=== PATIENT | female | born 1945 ===

== ENCOUNTER → 2017-12-28 | Outpatient (REF) | payer MEDICARE, BC | LOC: ZZSTITCHES 14:25 | PROVIDERS: ATTEND Physician Assistant | DX: Z02.9 Encounter for administrative examinations, unspecified (principal) ==

== ENCOUNTER → 2018-02-04 | Outpatient (CLI) | payer MEDICARE, BC ==
[~2018-02-04] MED LIST: CALC600T63 PO; CARB-127 PO; CHOL400T29 PO; ESCI5TAB3 PO; FLU180SY11 IM; MIDO5TAB20 PO; RASA1TAB3 PO; ROPI6TAB PO
[2018-02-04 12:08] LABS: PLATELET COUNT, AUTOMATED 296 K/uL (150-450)
--- NOTE | 2018-02-04 13:45 | RADIOLOGY IMAGING REPORT ---
FACILITY: [facility] PATIENT NAME: Leanna Cadena : 1945 MR: [id number] V: [id number] EXAM DATE: ORDERING PHYSICIAN: EDSON GALLEGO TECHNOLOGIST: Location: [facility] Patient: Leanna Cadena : 1945 Visit/Account:[id number] Date of Sevice: 02/04/2018 2 VIEWS CHEST INDICATION: dyspnea COMPARISON: None available FINDINGS: Cardiomediastinal silhouette: Heart size within normal limits. Lungs: There is no focal infiltrate or lobar consolidation. 1 cm radiodensity seen in the right uppe r lobe. Increased AP diameter of the chest. There is no pneumothorax or pleural effusion. Bones and soft tissues: Vertebral body heights are preserved. IMPRESSION: 1. 1 cm radiodensity in the right upper lobe with superimposed secondary findings of emphysema overa ll nonspecific, CT advised. Report Dictated By: Elmo Mckee MD at 02/04/2018 1:39 PM Report E-Signed By: Elmo Mckee MD at 02/04/2018 1:42 PM WSN:[id number]
--- NOTE | 2018-02-04 14:01 | RADIOLOGY IMAGING REPORT ---
FACILITY: [facility] [place] PATIENT NAME: Leanna Cadena : 1945 MR: [id number] V: [id number] EXAM DATE: ORDERING PHYSICIAN: EDSON GALLEGO TECHNOLOGIST: Location: [facility] [place] Patient: Leanna Cadena : 1945 Visit/Account:[id number] Date of Sevice: 02/04/2018 BONE MINERAL DENSITY Provided history: Osteopenia Additional pertinent history: none COMPARISON STUDIES: No relevant priors FINDINGS: LUMBAR SPINE: The bone mineral density (BMD) measured from [ L1-L4 ] correlates with a Z-score of 0.9 and a T-scor e of -1.0 which is consistent with mild osteopenia as defined by the World Health Organization. Th e corresponding risk of fracture in the lumbar spine is increased 2 times compared with a young kyle lt reference population. LEFT HIP: Total hip region - Z-score -0.5 , T-score -2.2 Femoral neck - Z-score -0.3 , T-score -2.2. The lower of the two measurements is consistent with advanced osteopenia as defined by the World Hea lth Organization. The corresponding risk of fracture in the hip is increased 4.5 times compared wit h a young adult reference population. IMPRESSION: 1. LUMBAR SPINE: consistent with mild osteopenia 2. LEFT HIP: consistent with advanced osteopenia LEFT Femoral Neck: Bone Mineral Density is 0.738 g/cm2 FRAX WHO Fracture Risk Assessment Tool link: http://www.lakia.ac.uk/FRAX/index.jsp The next DEXA scan of this patient should include the following sites: L1 - L4 and LEFT HIP PLEASE NOTE: 1. The World Health Organization defines low BMD as follows: T-score Normal > -1 Osteopenia -1 to -2.5 Osteoporosis < -2.5 without fractures Established osteoporosis < -2.5 with fractures 2. In general, you may wish to consider: Diagnosis Treatment Follow-up DEXA Normal BMD Prevention 2-3 years Osteopenia Prevention/therapy 1-2 years Osteoporosis Therapy Yearly 3. Fracture risk estimated from the T-score is more accurate for vertebral fractures (often spontaneo us) than for hip fractures. Report Dictated By: Vance Sylvester MD at 02/04/2018 1:56 PM Report E-Signed By: Vance Sylvester MD at 02/04/2018 1:57 PM WSN:[id number]
== END ==
LOC: LAB 11:43
PROVIDERS: ATTEND Emergency Medicine
DX: M85.89 Other specified disorders of bone density and structure, multiple sites (principal); E83.52 Hypercalcemia; D64.9 Anemia, unspecified; J43.9 Emphysema, unspecified; R06.00 Dyspnea, unspecified
CPT/HCPCS: 36415; 71046; 77080; 82040; 82247; 82306; 82310; 82374; 82435; 82565; 82607; 82728; 82947; 83540; 83550; 83970; 84075; 84132; 84155; 84295; 84450; 84460; 84520; 85025; 85379

== ENCOUNTER → 2018-02-11 | Outpatient (CLI) | payer MEDICARE, BC ==
--- NOTE | 2018-02-11 09:09 | RADIOLOGY IMAGING REPORT ---
FACILITY[place] [facility] [place] PATIENT NAME: Leanna Cadena : 1945 MR: [id number] V: [id number] EXAM DATE: ORDERING PHYSICIAN: EDSON GALLEGO TECHNOLOGIST: [place] [facility] [place] Cadena : 1945 Visit/Account:[id number] Date of Sevice: 02/11/2018 CHEST W/O CONTRAST History: pulmonary nodule TECHNIQUE: Contiguous axial images were performed through the chest to the level of the adrenal gla nds. No IV contrast was administered. Coronal and sagittal reformatting was also performed. One of t he following dose optimization techniques was utilized in the performance of this exam: Automated exp osure control; adjustment of the mA and/or kV according to the patient's size; or use of an iterative reconstruction technique. Specific details can be referenced in the facility's radiology CT exam o perational policy. COMPARISON STUDIES: Chest x-ray 02/04/2018 which demonstrated a small pulmonary nodule right mid mervat ng. Lungs / Pleura: In the right upper lobe corresponding to the radiographic abnormality there is a 6 x 7 mm part solid part groundglass nodule (axial image 32 series 3). In the right lower lobe there a re also two subpleural pulmonary micronodules which includes a 4 mm nodule (image 60 series 3) and a 3 mm nodule (image 65). The lung parenchyma is well aerated. There is mild tubular bronchiectasis i n the upper lobes right slightly more advanced than left. Mediastinum/nodes: negative. Heart and vessels: There is a very small pericardial effusion. It measures 19 Hounsfield units, sli ghtly greater than simple fluid. Musculoskeletal / Body wall: There are old healed right-sided rib fractures with mild posttraumatic deformity. Upper abdomen: There is 1.4 cm simple appearing cyst in the lateral segment of the left liver lobe. 5 mm cyst is noted in the right lobe. There is a 1 cm low density round nodule left adrenal gland which measures -6 Hounsfield units which is consistent with a small benign adrenal adenoma. IMPRESSION: 7 mm part solid part groundglass nodule right upper lobe warrants three-month short-term follow-up no ncontrast chest CT per Fleischner Society guidelines detailed below. There are also two subpleural p ulmonary micronodules in the right lung which can be reevaluated at the same time. Small pericardial effusion. Mild bilateral upper lobe tubular bronchiectasis right more advanced than left. Very small benign left adrenal adenoma. Fleischner Society Management Guidelines for Ground Glass Nodules Containing Solid Components: (Stew gan et al, Recommendations for the management of sub-solid pulmonary nodules detected at CT: A Stateme nt from the Fleischner Society. Radiology 2013; 266(1): 304-317.) - Solitary part-solid nodules: Initial followup CT at 3 months to confirm persistence. If persistent and solid component < 5 mm, then yearly surveillance CT for a minimum of 3 years. If persistent and s olid component greater than or equal to 5 mm, then biopsy or surgical resection. - Multiple sub-solid nodules with a dominant nodule(s) containing solid component: Initial followup C T in 3 months to confirm persistence. If persistent biopsy or surgical resection is recommended, ericka afsaneh for lesions with greater than 5 mm solid component. Report Dictated By: Jaime Bradley MD at 02/11/2018 8:54 AM Report E-Signed By: Jaime Bradley MD at 02/11/2018 9:04 AM WSN:[id number]
== END ==
LOC: CT 00:41
PROVIDERS: ATTEND Emergency Medicine
DX: I31.3 Pericardial effusion (noninflammatory) (principal); R91.8 Other nonspecific abnormal finding of lung field; J47.9 Bronchiectasis, uncomplicated; D35.02 Benign neoplasm of left adrenal gland
CPT/HCPCS: 71250

== ENCOUNTER → 2018-03-04 | Outpatient (REF) | payer MEDICARE, BC | LOC: ZZSENDIN 10:09 | PROVIDERS: ATTEND Emergency Medicine | DX: E21.0 Primary hyperparathyroidism (principal) | CPT/HCPCS: 82340; 82570 ==

== ENCOUNTER 2018-03-13 09:30 | Outpatient (RCR) | payer MEDICARE, BC ==
--- NOTE | 2018-02-16 15:52 | PT INITIAL EVALUATION ---
MEDICAL DIAGNOSIS: R29.6 Recurrent Falls TREATMENT DIAGNOSIS: Same, G20 Parkinson's Disease DATE OF ONSET: 05/19/15 SUBJECTIVE: Leanna Cadena presents to PT for frequent LOB with falls or near falls in the last two years. She was diagnosed with Parkinson's Disease (PD) in 2007. Leanna relates she's having a good day regarding her PD. She denies freezing or swallowing difficulties and is clear in her speech. REHAB PROBLEM LIST: Decreased Strength, Decreased Balance, Decreased Gait PREVIOUS MEDICAL HISTORY: Nodule on lungs, R frozen shoulder, R 4th trigger finger, R 5th finger fracture with loss of extension ROM (right-handed), orthostatic hypotension, mild glaucoma. 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 [place], PD bicycling, remodeling her new home (No ladders). Leanna would like to improve mobility for getting off the floor, from car seat or low chair, stronger to open heavy doors and have balance to step over the vacuum, single leg stand to put pants and shoes on. OBJECTIVE: Posture: Heels 4" apart, mild R hand tremor, midline, upright trunk and head. Modified Mert and Yahr score 1.0. ROM: LE's WNL. Strength: Quads B 40#, hip abductors B 5/5, adductors 3=/5. Mobility: Independent bed and sit<>stand mobility. Gait: Functional Gait Assessment 17% impairment, with inability to keep eyes on target with gait with head motion, altered speed and discordant steps ambulating with eyes shut. Turns quickly with control and uses stairs without handrail, reciprocating gait. Fast gait speed 2.2 ft/second. Balance: [place] Balance Assessment 56/56, no impairment, however R single leg stand with R trunk lean. Leanna relates it's unusual that she can hold single leg stand at all (she made 10 seconds) or achieve tandem stand. Functional reach 10", WS L and R well. ASSESSMENT: Leanna Cadena presents with altered balance, PD affecting mobility, today low fall risk, but may be worse when I've seen her off times. She's started on LSVT BIG exercises. Leanna is in a good position to partake in LSVT BIG program to slow the progression of her PD. Short Term Goals/Patient's Goals 4 weeks: Leanna arises from the floor, donns pant leg SLS with balance control, opens heavy doors easily, transfers out of low chairs, car seat smoothly and quickly. PLAN: Patient to be seen for LSVT BIG Balance/Gait Training, Neuro Re- education, HEP for 4x/week, 4 weeks Thank you for this referral. If you have any questions, comments, or concerns about this report or plan, please contact me at . [facility]
--- NOTE | 2018-03-03 18:05 | PT PLAN OF CARE ---
Physician: Dr. Honey Ghotra Patient is being seen: 4x/week Therapist: Pippa Montalvo PT Medical Diagnosis: R29.6 Recurrent Falls Treatment Diagnosis: Same, G20 Parkinson's Disease Date of Onset: 05/19/15 Date of Initial Evaluation: 02/16/18 Date patient was last seen: 03/02/18 Number of treatments: 9 Number of cancellations/No shows: 0 INTERVENTIONS: LSVT BIG Neuro Re-education, Gait and Balance Training, HEP GOALS/PATIENT'S GOAL: 4 weeks: Leanna arises from the floor (met), donns pant leg SLS with balance control (progressing), opens heavy doors easily (progressing), transfers out of low chairs (met), car seat smoothly and quickly (met). Patient Compliance: Excellent Prognosis: Excellent Reasons for continuing therapy: S: Leanna relates it's easier to arise from the floor and low chairs. She tripped once this weekend on the lip of her yard waste container, fell without injury. Posture: Heels 4" apart, mild B hand tremor, midline, upright trunk and head. Modified Mert and Yahr score 2.0. ROM: LE's WNL. Gait/Balance: Leanna now ambulates with improved B arm swing, fast cadance. She has LOB with dynamic WS balance exercises. Orlando Balance Assessment 53/56, a normal fall risk. Functional Gait Assessment improved to 7%. Mobility: Independent bed and sit<>stand mobility. A/P: Leanna Cadena has improved gait and balance but needs more dynamic balance training. If you agree, we'll continue at 4x/week 2 more weeks. Thank you. JOLLY
--- NOTE | 2018-03-13 14:48 | PT PLAN OF CARE ---
Physician: Dr. Honey Ghotra Patient is being seen: 4x/week Therapist: Pippa Montalvo, PT Medical Diagnosis: R29.6 Recurrent Falls Treatment Diagnosis: Vane, G20 Parkinson's Disease Date of Onset: 05/19/15 Date of Initial Evaluation: 02/16/18 Date patient was last seen: 03/13/18 Number of treatments: 16 Number of cancellations/No shows: 0 INTERVENTIONS: LSVT BIG Neuro Re-education, Gait and Balance Training, HEP GOALS/PATIENT'S GOAL: 4 weeks: Leanna arises from the floor (met), donns pant leg SLS with balance control (met), opens heavy doors easily (met), transfers out of low chairs (met), car seat smoothly and quickly (met). Patient Compliance: Excellent Prognosis: Excellent Reasons for discontinuing therapy: S: Leanna relates she hasn't fallen, finds car transfers, heavy doors, arising from the floor and donning pant legs in single leg stand easy. O: Gait/Balance: Functional Gait Assessment 3% impairment with L weaving with eyes shut. Orlando Balance Assessment 56/56, a 0% impairment with single leg stand 17 seconds. Corrective balance reactions demonstrated on soft and firm surfaces. Modified Mert and Yahr 2.0 A/P: Leanna Cadena has worked hard with LSVT BIG and is consistent with her LSVT BIG HEP. I'll DC PT to HEP with a recommendation for a 6 month follow up with me for LSVT tune up. I'll DC PT for now. Thank you. JOLLY
== END 2018-03-13 18:00 | disposition home or self-care (01) ==
LOC: PT 09:30
PROVIDERS: ATTEND Emergency Medicine
DX: R29.6 Repeated falls (principal); G20 Parkinson's disease
CPT/HCPCS: 97162

== ENCOUNTER 2018-04-12 14:01 | Emergency (ER) | payer MEDICARE, BC ==
--- NOTE | 2018-04-12 14:13 | ER Report ---
History and Physical Time Seen By MD: 14:12 HPI/ROS CHIEF COMPLAINT: Unsteadiness on her feet HISTORY OF PRESENT ILLNESS: [must have 4 elements] REVIEW OF SYSTEMS: Constitutional: [No fever, no chills.] Eyes: [No discharge.] ENT: [No sore throat.] Cardiovascular: [No chest pain, no palpitations.] Respiratory: [No cough, no shortness of breath.] Gastrointestinal: [No abdominal pain, no vomiting.] Genitourinary: [No hematuria.] Musculoskeletal: [No back pain.] Skin: [No rashes.] Neurological: [No headache.] Allergies: Coded Allergies: raw vegetable (Unverified Adverse Reaction, Unknown, 02/03/18) carrots and potatoes Home Meds Reported Medications Cholecalciferol (Vitamin D3) (VITAMIN D3) 400 Unit Tablet, 800 UNIT PO DAILY 02/04/18 Calcium Carbonate (CALCIUM) 600 Mg Tablet, 600 MG PO DAILY 02/04/18 Midodrine Hcl (MIDODRINE HCL) 5 Mg Tablet, 1 TAB PO BID 02/03/18 Escitalopram Oxalate (ESCITALOPRAM OXALATE) 5 Mg Tablet, 1 TAB PO QDAY 02/03/18 Ropinirole Hcl (ROPINIROLE HCL) 6 Mg Tab.er.24h, 1 TAB PO QDAY 02/03/18 Rasagiline Mesylate (AZILECT) 1 Mg Tablet, 1 TAB PO QDAY 02/03/18 Carbidopa/Levodopa (CARBIDOPA-LEVO 25-100 MG ODT) 1 Each Tab.rapdis, 1.5 TAB PO QID 02/03/18 Past Medical/Surgical History Past medical history for recurrent falls, history of Parkinson's disease with recent change in medications. Additional history for hypoparathyroidism, history of repair for cystocele and prolapsed bladder. Smoking Status: Never Smoker Constitutional Vital Sign - Last 24 Hours 04/12/18 14:10 Temp 97.5 Pulse 78 Resp 20 B/P (MAP) 156/97 Pulse Ox 92 O2 Delivery Room Air Depart Departure Latest Vital Signs Vital Signs Date Time Temp Pulse Resp B/P (MAP) Pulse Ox O2 Delivery O2 Flow Rate FiO2 04/12/18 14:10 97.5 78 20 156/97 92 Room Air Condition: Stable Disposition: HOME OR SELF-CARE Referrals: EDSON GALLEGO MD (PCP) JOVANNI DIAZ MD Apr 12, 2018 14:13
--- NOTE | 2018-04-12 14:56 | ER Report ---
History and Physical Time Seen By MD: 14:49 Hx. of Stated Complaint: patient reports that she feels like she is veering to the left while she is walking. family also reports increased confusion for the last few weeks. HPI/ROS CHIEF COMPLAINT: veering to left with walking, confusion HISTORY OF PRESENT ILLNESS: Pt is here with her daughter and . PT started yesterday having episodes of veering to the left with walking. walking improved but then today while walking in town started with symptoms again. Pt feels g eneral weakness but no unilateral weakness. and daughter also feel her cognitive mentation has been off for a few months. does not feel forgetful but both family members see a change. PT just moved here from [place] 4 months ago. does not know if the altitude is making her worse. Pt has Parkinsons so has had an unsteady gait but this is worse. PT did have a change in her medicati ons, her Ropinirole was recently decreased from 6 to 4 mg . PT states she has been more sob since she moved to [place]. No chest pain. no abd pain. no trauma REVIEW OF SYSTEMS: Constitutional: No fever, no chills. Eyes: No discharge. ENT: No sore throat. Cardiovascular: No chest pain, no palpitations. Respiratory: No cough, no shortness of breath. Gastrointestinal: No abdominal pain, no vomiting. Genitourinary: No hematuria. Musculoskeletal: No back pain. Skin: No rashes. Neurological: No headache. weakness, walking to left Allergies: Coded Allergies: raw vegetable (Unverified Adverse Reaction, Unknown, 02/03/18) carrots and potatoes Home Meds Reported Medications Polyethylene Glycol 3350 (MIRALAX) 17 Gm Powd.pack, 17 GM PO QDAY, PKT 04/12/18 Ropinirole Hcl (ROPINIROLE HCL) 4 Mg Tab.er.24h, 4 MG PO QDAY 04/12/18 Calcium Carbonate (CALCIUM) 600 Mg Tablet, 600 MG PO DAILY 02/04/18 Midodrine Hcl (MIDODRINE HCL) 5 Mg Tablet, 1 TAB PO BID 02/03/18 Escitalopram Oxalate (ESCITALOPRAM OXALATE) 5 Mg Tablet, 1 TAB PO QDAY 02/03/18 Rasagiline Mesylate (AZILECT) 1 Mg Tablet, 1 TAB PO QDAY 02/03/18 Carbidopa/Levodopa (CARBIDOPA-LEVO 25-100 MG ODT) 1 Each Tab.rapdis, 1.5 TAB PO QID 02/03/18 Discontinued Reported Medications Cholecalciferol (Vitamin D3) (VITAMIN D3) 400 Unit Tablet, 800 UNIT PO DAILY 02/04/18 Ropinirole Hcl (ROPINIROLE HCL) 6 Mg Tab.er.24h, 1 TAB PO QDAY 02/03/18 Past Medical/Surgical History pmhx: osteoporosis, htn, parkinsons, rib fx, cystocele Pshx; bladder repair Reviewed Nurses Notes: Yes Old Medical Records Reviewed: Yes Smoking Status: Never Smoker Hx Substance Use Disorder: No Hx Alcohol Use: No Constitutional Vital Sign - Last 24 Hours 04/12/18 04/12/18 04/12/18 04/12/18 14:01 14:10 14:12 14:30 Temp 97.5 Pulse ??? 78 Resp 20 B/P (MAP) 156/97 156/97 (116) 148/87 (107) Pulse Ox 92 O2 Delivery Room Air 04/12/18 04/12/18 04/12/18 04/12/18 14:31 15:00 15:01 15:26 Pulse 74 72 Resp 15 17 B/P (MAP) 153/89 (110) 140/82 (101) Pulse Ox 92 04/12/18 04/12/18 04/12/18 15:30 15:31 16:30 Pulse 73 71 Resp 17 17 B/P (MAP) 150/83 (105) 158/102 (120) Pulse Ox 93 89 Physical Exam General Appearance: The patient is alert, has no immediate need for airway protection and no signs of toxicity. Eyes: Pupils equal and round no pallor or injection, EOMI ENT: no pharyngeal erythema or exudates, Mucous membranes are moist Respiratory: There are no retractions, lungs are clear to auscultation. Cardiovascular: Regular rate and rhythm. pulses are equal and symmetrical Gastrointestinal: Abdomen is soft and non tender, no masses, bowel sounds normal, no guarding, no rigidity or rebound Neurological: Cranial nerves II-XII grossly intact, no sensory or motor loss, no pronator drift, no dysmetria, upper and lower strength 5/5 Skin: Warm and dry, no rashes. Musculoskeletal: Neck is supple non tender, no vertebral tenderness Extremities are nontender, non swollen and have full range of motion. DIFFERENTIAL DIAGNOSIS: After history and physical exam differential diagnosis was considered for dehydration, effect secondary to medication change, tia, cva Medical Decision Making Data Points Result Diagram: 04/12/18 1526 04/12/18 1526 Laboratory Hematology Test 04/12/18 15:26 Red Blood Count 4.26 M/uL (4.17-5.56) Mean Corpuscular Volume 89.9 fL (80.0-96.0) Mean Corpuscular Hemoglobin 30.0 pg (26.0-33.0) Mean Corpuscular Hemoglobin Concent 33.3 g/dL (32.0-36.0) Red Cell Distribution Width 13.4 % (11.5-14.5) Mean Platelet Volume 8.4 fL (7.2-11.1) Neutrophils (%) (Auto) 58.8 % (39.4-72.5) Lymphocytes (%) (Auto) 23.9 % (17.6-49.6) Monocytes (%) (Auto) 8.0 % (4.1-12.4) Eosinophils (%) (Auto) 8.3 % (0.4-6.7) Basophils (%) (Auto) 1.0 % (0.3-1.4) Nucleated RBC Relative Count (auto) 0.1 /100WBC Neutrophils # (Auto) 4.3 K/uL (2.0-7.4) Lymphocytes # (Auto) 1.8 K/uL (1.3-3.6) Monocytes # (Auto) 0.6 K/uL (0.3-1.0) Eosinophils # (Auto) 0.6 K/uL (0.0-0.5) Basophils # (Auto) 0.1 K/uL (0.0-0.1) Nucleated RBC Absolute Count (auto) 0.00 K/uL Prothrombin Time 13.5 seconds (12.0-14.4) Prothromb Time International Ratio 1.03 Activated Partial Thromboplast Time 28 seconds (23-35) Sodium Level 138 mmol/L (137-145) Potassium Level 4.3 mmol/L (3.5-5.0) Chloride Level 102 mmol/L (98-107) Carbon Dioxide Level 27 mmol/L (22-31) Blood Urea Nitrogen 22 mg/dl (7-18) Creatinine 0.90 mg/dl (0.52-1.04) Glomerular Filtration Rate Calc > 60.0 Random Glucose 71 mg/dl (75-110) Calcium Level 9.5 mg/dl (8.4-10.2) Total Bilirubin 0.6 mg/dl (0.2-1.3) Aspartate Amino Transf (AST/SGOT) 24 U/L (0-35) Alanine Aminotransferase (ALT/SGPT) 10 U/L (0-56) Alkaline Phosphatase 65 U/L (0-126) Troponin I < 0.012 ng/ml Total Protein 8.1 g/dl (6.3-8.2) Albumin 4.0 g/dl (3.5-5.0) Chemistry Test 04/12/18 15:26 White Blood Count 7.3 k/uL (4.5-11.0) Red Blood Count 4.26 M/uL (4.17-5.56) Hemoglobin 12.8 g/dL (12.0-16.0) Hematocrit 38.3 % (34.0-47.0) Mean Corpuscular Volume 89.9 fL (80.0-96.0) Mean Corpuscular Hemoglobin 30.0 pg (26.0-33.0) Mean Corpuscular Hemoglobin Concent 33.3 g/dL (32.0-36.0) Red Cell Distribution Width 13.4 % (11.5-14.5) Platelet Count 273 K/uL (150-450) Mean Platelet Volume 8.4 fL (7.2-11.1) Neutrophils (%) (Auto) 58.8 % (39.4-72.5) Lymphocytes (%) (Auto) 23.9 % (17.6-49.6) Monocytes (%) (Auto) 8.0 % (4.1-12.4) Eosinophils (%) (Auto) 8.3 % (0.4-6.7) Basophils (%) (Auto) 1.0 % (0.3-1.4) Nucleated RBC Relative Count (auto) 0.1 /100WBC Neutrophils # (Auto) 4.3 K/uL (2.0-7.4) Lymphocytes # (Auto) 1.8 K/uL (1.3-3.6) Monocytes # (Auto) 0.6 K/uL (0.3-1.0) Eosinophils # (Auto) 0.6 K/uL (0.0-0.5) Basophils # (Auto) 0.1 K/uL (0.0-0.1) Nucleated RBC Absolute Count (auto) 0.00 K/uL Prothrombin Time 13.5 seconds (12.0-14.4) Prothromb Time International Ratio 1.03 Activated Partial Thromboplast Time 28 seconds (23-35) Glomerular Filtration Rate Calc > 60.0 Calcium Level 9.5 mg/dl (8.4-10.2) Total Bilirubin 0.6 mg/dl (0.2-1.3) Aspartate Amino Transf (AST/SGOT) 24 U/L (0-35) Alanine Aminotransferase (ALT/SGPT) 10 U/L (0-56) Alkaline Phosphatase 65 U/L (0-126) Troponin I < 0.012 ng/ml Total Protein 8.1 g/dl (6.3-8.2) Albumin 4.0 g/dl (3.5-5.0) Coagulation Test 04/12/18 15:26 Prothrombin Time 13.5 seconds Prothromb Time International Ratio 1.03 Activated Partial Thromboplast Time 28 seconds EKG/Imaging EKG Interpretation nsr @ 70 with poor R wave progression anterior leads. ED Course/Re-evaluation Clinical Indication for ER IV: Hydration, IV Access ED Course check labs, ekg and ct. If normal ct will MRI 04/12/2018 4:06:21 pm labs are back showing mild dehydration and low end of nl glucose. will hang fluids. Awaiting Ct report. 04/12/2018 6:06:[address] did not show infarction. Pt was sent to MRI for f urther evaluation. MRI is back and shows no acute infarction. will d/c pt to follow up with her pcp to further discuss and evaluate the current issue. Not sure if it is altitude or possibly the medication change. Pt should follow up with pcp and neurologist. Decision to Disposition Date: Apr 12, 2018 Decision to Disposition Time: 18:07 Depart Departure Latest Vital Signs Vital Signs Date Time Temp Pulse Resp B/P (MAP) Pulse Ox O2 Delivery O2 Flow Rate FiO2 04/12/18 16:30 71 17 158/102 (120) 89 04/12/18 14:10 97.5 Room Air Impression: Primary Impression: Dehydration Additional Impression: Ataxia Condition: Improved Disposition: HOME OR SELF-CARE Referrals: EDSON GALLEGO MD (PCP) 2 Days Patient Instructions: Parkinson Disease (ED) Additional Instructions: We were concerned that your walking may have been a stroke. We checked your brain by cat scan as well as MRI which did not show an acute stroke. Your blood work showed mild dehydration and low glucose. We replaced both. Have dinner when you get home. Follow up with your family doctor or neurologist this week Problem Qualifiers MATTHEW WALLS DO Apr 12, 2018 14:56
[2018-04-12 15:39] LABS: PLATELET COUNT, AUTOMATED 273 K/uL (150-450)
[2018-04-12] MEDS ORDERED: POLY17PO25 PO (15:47)
[2018-04-12] MEDS ORDERED: ROPI4TAB2 PO (15:47)
[2018-04-12 15:48] LABS: INR 1.03
--- NOTE | 2018-04-12 16:02 | EKG ---
FACILITY: [facility] - [place] PATIENT NAME: OLENA TERRAZAS : [id number] MR: [id number] V: [id number] EXAM DATE: ORDERING PHYSICIAN: MATTHEW WALLS TECHNOLOGIST: IVETH Berg Reason : NEURO Blood Pressure : / mmHG Vent. Rate : 072 BPM Atrial Rate : 072 BPM P-R Int : 146 ms QRS Dur : 082 ms QT Int : 424 ms P-R-T Axes : 036 -22 048 degrees QTc Int : 464 ms Sinus rhythm Left axis Poor R wave progression anteriorly Abnormal ECG No previous ECGs available Confirmed by LOPEZ SANON ([id number]) on 04/13/2018 6:24:42 AM Referred By: Confirmed By:LOPEZ SANON
[2018-04-12] MEDS ORDERED: D5 1/2 NS(*) 1000 ML BAG 1,000 ML IV ONE (16:05)
--- NOTE | 2018-04-12 16:12 | RADIOLOGY IMAGING REPORT ---
FACILITY: [facility] PATIENT NAME: Leanna Cadena : 1945 MR: [id number] V: [id number] EXAM DATE: ORDERING PHYSICIAN: MATTHEW WALLS TECHNOLOGIST: Location: [facility] - [place] Patient: Leanna Cadena : 1945 Visit/Account:[id number] Date of Sevice: 04/12/2018 CHEST PA AND LAT HISTORY: Shortness of breath. Weakness. COMPARISON: 02/04/2018. FINDINGS: Lines/tubes: None. Lungs/pleura: Negative. Heart: Negative. Mediastinum: Negative. Bony structures/body wall: Negative. IMPRESSION: No acute cardiopulmonary process. Report Dictated By: Jori Corey MD at 04/12/2018 4:08 PM Report E-Signed By: Jori Corey MD at 04/12/2018 4:09 PM WSN:[id number]
--- NOTE | 2018-04-12 16:15 | RADIOLOGY IMAGING REPORT ---
FACILITY: [facility] - [place], [place] PATIENT NAME: Leanna Cadena : 1945 MR: [id number] V: [id number] EXAM DATE: ORDERING PHYSICIAN: MATTHEW WALLS TECHNOLOGIST: Location: [facility] - [place] Patient: Leanna Cadena : 1945 Visit/Account:[id number] Date of Sevice: 04/12/2018 EXAMINATION: CT Head without intravenous contrast HISTORY: Veering to the left while walking. TECHNIQUE: Axial images were obtained from the skull base to the vertex without intravenous contrast . Sagittal and coronal reformatted images are also submitted. One of the following dose optimization techniques was utilized in the performance of this exam: Autom ated exposure control; adjustment of the mA and/or kV according to the patient's size; or use of an i terative reconstruction technique. Specific details can be referenced in the facility's radiology C T exam operational policy. COMPARISON: None available. FINDINGS: Brain volume: Normal. Ventricles: Negative. Acute ischemic changes: None. Hemorrhage: None. Masses / edema: None. Gomez-white: Negative. White matter: Mild chronic microvascular ischemic changes. Vessels: Negative. Extra-axial: Dural ossification along the falx. Calvarium / skull base: Negative. Visualized sinuses / orbits: Rightward nasal septal deviation. IMPRESSION: No acute intracranial abnormality. Report Dictated By: Jori Corey MD at 04/12/2018 4:09 PM Report E-Signed By: Jori Corey MD at 04/12/2018 4:12 PM WSN:[id number]
[2018-04-12 18:00] VITALS: BP 140/101
--- NOTE | 2018-04-12 18:03 | RADIOLOGY IMAGING REPORT ---
FACILITY: [facility] - [place] PATIENT NAME: Leanna Cadena : 1945 MR: [id number] V: [id number] EXAM DATE: ORDERING PHYSICIAN: MATTHEW WALLS TECHNOLOGIST: Location: [facility] Patient: Leanna Cadena : 1945 Visit/Account:[id number] Date of Sevice: 04/12/2018 EXAMINATION: MR brain without IV contrast HISTORY: Off-balance, walking towards the left. COMPARISON: CT head without contrast performed earlier today TECHNIQUE: Multi-planar, multi-sequence brain MRI was performed without IV contrast administration. FINDINGS: Brain volume: Normal for patient age. Sagittal midline structures: Normal. Ventricles: Normal. Acute ischemic changes: None. Hemorrhage: None. Masses / edema: None. Gomez-white: Negative. White matter lesions: There are scattered foci of T2/FLAIR hyperintensity in the periventricular and subcortical white matter bilaterally, compatible with chronic small vessel ischemic change. Vessels: Normal. Extra-axial: None. Calvarium / scalp: Negative. Skull base: Negative. Visualized sinuses / orbits: Negative. Visualized upper neck: Negative. IMPRESSION: 1. No evidence of acute infarct or other acute intracranial pathology. 2. Mild age-appropriate parenchymal volume loss with chronic small vessel ischemic change. Report Dictated By: Dakotah Vasquez MD at 04/12/2018 5:49 PM Report E-Signed By: Dakotah Vasquez MD at 04/12/2018 5:59 PM WSN:[id number]
== END 2018-04-12 18:33 | disposition home or self-care (01) ==
LOC: ER 14:21
DX: E86.0 Dehydration (principal); R27.0 Ataxia, unspecified
CPT/HCPCS: 70450; 70551; 71046; 82040; 82247; 82310; 82374; 82435; 82565; 82947; 84075; 84132; 84155; 84295; 84450; 84460; 84484; 84520; 85025; 85610; 85730; 93005; 96360; 96361; 99285

== ENCOUNTER → 2018-05-18 | Outpatient (CLI) | payer MEDICARE, BC ==
[~2018-05-18] MED LIST changes: +ATEN-65 PO; +POLY17PO25 PO; +ROPI4TAB2 PO
--- NOTE | 2018-05-18 11:06 | RADIOLOGY IMAGING REPORT ---
FACILITY: [facility] PATIENT NAME: Leanna Cadena : 1945 MR: [id number] V: [id number] EXAM DATE: ORDERING PHYSICIAN: EDSON GALLEGO TECHNOLOGIST: Location: [facility] - [place] Patient: Leanna Cadena : 1945 Visit/Account:[id number] Date of Sevice: 05/18/2018 CT CHEST W/O CONTRAST History: Lung nodule follow up TECHNIQUE: Contiguous axial images were performed through the chest to the level of the adrenal gla nds. No IV contrast was administered. Coronal and sagittal reformatting was also performed.Dose Lower ing Technique One of the following dose optimization techniques was utilized in the performance of this exam: Autom ated exposure control; adjustment of the mA and/or kV according to the patient's size; or use of an i terative reconstruction technique. Specific details can be referenced in the facility's radiology C T exam operational policy. COMPARISON STUDIES: February 11, 2018. Lungs / Pleura: There is mild biapical fibrotic change. In the right upper lobe again noted is the part solid groundglass nodule that appears well totally un changed in size measuring 6 x 7 mm and is best seen on image 113 of series 4 4 mm subpleural nodule in the posterior medial right lower lobe also appears stable best seen on imag e 25 of series 4 The 3 mm subpleural nodule lateral aspect right lower lobe is also unchanged best seen on image 224 o f series 4 Mediastinum/nodes: negative. Heart and vessels: Small pericardial effusion unchanged Musculoskeletal / Body wall: Multiple thyroid nodules which could be further evaluated with thyroid ultrasound Upper abdomen: 1.4 cm cyst left lobe the liver appears unchanged. 5 mm hypodensity right lobe like barry appears stable 1 cm left adrenal adenoma appears unchanged IMPRESSION: The 6 x 7 mm part solid groundglass nodule in the right upper lobe appears unchanged in size as do th e two subpleural nodules in the right lung measuring up to 4 mm. [employer] SOC[employer]ET[employer] FOLLOW-UP GUIDELINES FOR NEWLY DETECTED INCIDENTAL NODULES IN PERSONS 35 YEARS OF AGE OR OLDER. *These recommendations do NOT apply to lung cancer screening, patients with immunosuppression or georgi ents with a known primary malignancy. SOLITARY SUBSOLID NODULE GROUND GLASS: If nodule size is < 6 mm: * No routine follow-up. If nodule size is > or equal to 6 mm: * CT at 6-12 months to confirm persistence, then CT every 2 years until 5 years if unchanged. PART SOLID: If nodule size is < 6 mm: * No routine follow-up. If nodule size is > or equal to 6 mm with solid component < 6 mm: * CT at 3-6 months to confirm persistence. If unchanged and solid component remains < 6 mm, annual CT for 5 years. If nodule size is > or equal to 6 mm with solid component > or equal to 6 mm: * CT at 3-6 months to confirm persistence. If unchanged, should be considered highly suspicious. LOW RISK PATIENT: Minimal or absent history of tobacco use and of other known risk factors. HIGH RISK PATIENT: Tobacco use, family history of lung cancer, upper pulmonary lobe location of nodul e, presence of emphysema, pulmonary fibrosis, older age. Koki H, Maged DP, Goo JM, et al. Guidelines for Management of Incidental Pulmonary Nodules Dete cted on CT Images: From the Fleischner Society 2017. Radiology. uchnipn Small pericardial effusion unchanged 1 cm left adrenal adenoma unchanged Multiple thyroid nodules for which thyroid ultrasound may be helpful Report Dictated By: Mary Serna MD at 05/18/2018 10:45 AM Report E-Signed By: Mary Serna MD at 05/18/2018 11:00 AM WSN:[email or web address]
== END ==
LOC: CT 03:56
PROVIDERS: ATTEND Emergency Medicine
DX: I31.3 Pericardial effusion (noninflammatory) (principal); E04.2 Nontoxic multinodular goiter; R91.8 Other nonspecific abnormal finding of lung field
CPT/HCPCS: 71250

== ENCOUNTER → 2018-05-25 | Outpatient (CLI) | payer MEDICARE, BC ==
--- NOTE | 2018-05-25 09:59 | RADIOLOGY IMAGING REPORT ---
FACILITY: [facility] PATIENT NAME: Leanna Cadena : 1945 MR: [id number] V: [id number] EXAM DATE: ORDERING PHYSICIAN: EDSON GALLEGO TECHNOLOGIST: Location: [facility] - [place] Patient: Leanna Cadena : 1945 Visit/Account:[id number] Date of Sevice: 05/25/2018 THYROID HISTORY: thyroid US COMPARISON: None. FINDINGS: SIZE: Normal. Right lobe: 3.8 x 1.7 x 1.1 cm Left lobe: 3.7 x 1.3 x 1.4 cm Isthmus: 2 mm PARENCHYMA: Homogeneous. NODULES: Right lobe: * There is a 3 mm hypoechoic nodule containing several punctate calcifications in the inferior right lobe Left lobe: * In the inferior aspect left lobe there is a complex partially solid partially cystic nodule measur ing 1.2 x 0.9 x 1 cm Isthmus: * None discrete. VASCULARITY: Within normal limits. ADDITIONAL FINDINGS: None. IMPRESSION: 3 mm hypoechoic nodule containing several punctate calcination occasions inferior aspect the right lo be 1.2 cm complex partially cystic partially solid nodule inferior aspect the left lobe REFERENCE: 2015 [place] [employer] Management Guidelines for Adult Patients with Thyroid Nodules and D ifferentiated Thyroid Cancer: The [place] Thy[employer] Guidelines Task Force on Thyroid Nodul es and Differentiated Thyroid Cancer. SONOGRAPHIC PATTERNS: * Benign: Purely cystic nodules (no solid component); estimated risk of malignancy <1 percent; no bi opsy recommended. * Very Low Suspicion: Spongiform or partially cystic nodules without any of the sonographic features described in low, intermediate, or high suspicion patterns; estimated risk of malignancy <3 percent; consider FNA at > 2 cm (Observation without FNA is also a reasonable option). * Low Suspicion: Isoechoic or hyperechoic solid nodule, or partially cystic nodule with eccentric so lid areas, without microcalcification, irregular margin or ETE (extra-thyroidal extension), or taller than wide shape; estimated risk of malignancy 5-10 percent; recommend FNA at >1.5 cm. * Intermediate Suspicion: Hypoechoic solid nodule with smooth margins without microcalcifications, E TE (extra-thyroidal extension), or taller than wide shape; estimated risk of malignancy 10-20 percent ; recommend FNA at > 1 cm. * High Suspicion: Solid hypoechoic nodule or solid hypoechoic component of a partially cystic nodule with one or more of the following features: irregular margins (infiltrative, microlobulated), microc alcifications, taller than wide shape, rim calcifications with small extrusive soft tissue component, evidence of ETE (extra-thyroidal extension); estimated risk of malignancy >70-90 percent; recommend FNA at > 1 cm. NOTES: * Although a sonographically suspicious subcentimeter thyroid nodule without evidence of extrathyroi franck extension or sonographically suspicious lymph nodes may be observed with close sonographic follow -up rather than pursuing immediate FNA, patient age and preference may modify decision-making. A > 50% interval increase in nodule volume and/or development of new suspicious sonographic features are felt to be a valid reasons for potential re-aspiration of a nodule previously shown to have benig n FNA cytology. Report Dictated By: Mary Serna MD at 05/25/2018 9:50 AM Report E-Signed By: Mary Serna MD at 05/25/2018 9:55 AM WSN:[email or web address]
== END ==
LOC: US 01:42
PROVIDERS: ATTEND Emergency Medicine
DX: E04.2 Nontoxic multinodular goiter (principal)
CPT/HCPCS: 76536

== ENCOUNTER → 2018-06-04 | Outpatient (CLI) | payer MEDICARE, BC | LOC: LAB 15:45 | PROVIDERS: ATTEND Emergency Medicine | DX: E53.8 Deficiency of other specified B group vitamins (principal) | CPT/HCPCS: 36415; 82607 ==

== ENCOUNTER → 2018-08-14 | Outpatient (CLI) | payer MEDICARE, BC ==
[~2018-08-14] MED LIST changes: +DIA5 PO; +MELA1TAB38; +ROPI2TAB3 PO
[2018-08-14 09:10] LABS: INR 0.98
== END ==
LOC: LAB 08:27
PROVIDERS: ATTEND Emergency Medicine
DX: Z01.812 Encounter for preprocedural laboratory examination (principal); I10 Essential (primary) hypertension
CPT/HCPCS: 36415; 84443; 85610

== ENCOUNTER 2018-08-20 06:25 | Emergency (ER) | payer MEDICARE, BC ==
[2018-08-20] MEDS ORDERED: DOCU-416 PO (06:36)
[2018-08-20 06:48] LABS: PLATELET COUNT, AUTOMATED 260 K/uL (150-450)
--- NOTE | 2018-08-20 07:30 | RADIOLOGY IMAGING REPORT ---
FACILITY: [facility] PATIENT NAME: Leanna Cadena : 1945 MR: [id number] V: [id number] EXAM DATE: ORDERING PHYSICIAN: MARCELLA HUTCHINSON TECHNOLOGIST: Location: [facility] Patient: Leanna Cadena : 1945 Visit/Account:[id number] Date of Sevice: 08/20/2018 KUB SINGLE VIEW ABDOMEN HISTORY: Abdominal pain/constipation. COMPARISON: None. FINDINGS: 2 supine views were obtained. Distribution of bowel gas is normal with bowel in all four quadrants as well as centrally. There is a large amount stool throughout colon. No dilated bowel loops. No free air. Lung bases are clear. There are pelvic phleboliths. There is mild multilevel degenerative change of t he lumbar spine. IMPRESSION: 1. Large amount of stool in colon, compatible with constipation. No obstruction. Report Dictated By: Ros Martinez at 08/20/2018 7:24 AM Report E-Signed By: Ros Martinez at 08/20/2018 7:26 AM WSN:[id number]
[2018-08-20] MEDS ORDERED: NS(*) 0.9% 1000 ML BAG 1,000 ML IV ONE (07:50)
[2018-08-20] MEDS ORDERED: IOPAMIDOL 76% 150 ML INFUS BTL 150 ML ONE (08:55)
--- NOTE | 2018-08-20 09:05 | ER Report ---
History and Physical Time Seen By MD: 07:00 Hx. of Stated Complaint: patient has been having abdominal pain for 3days, patient states passing a little gas, last regular bowel movement was 1week ago. HPI/ROS CHIEF COMPLAINT: Abdominal pain, constipation HISTORY OF PRESENT ILLNESS: 73-year-old female presents with 4 days of abdominal pain. She states that this started soon after her last neurologic appointment. She was recently increased on her carbidopa levodopa level, however states that symptoms began before this increased. She states that she has had constipation and has battled with this for years. She has having continued bowel movements, with the last this morning which was loose, not bloody or black. She states that she feels like she still has more stool, and is having associated pain. She feels that the pain is worse than what she normally feels, and is in the left lower quadrant. Pain is constant, not relieved by bowel movement. She has not had bloody or black stools. She has not had nausea or vomiting. She has not had fever or chills. She has not had change in urination. She's had no prior a bdominal surgeries other than for bladder prolapse. Last colonoscopy was 5 years ago and was normal per her report. She has tried laxatives and enemas with minimal success. REVIEW OF SYSTEMS: Constitutional: No fever, no chills. Eyes: No discharge. ENT: No sore throat. Cardiovascular: No chest pain, no palpitations. Respiratory: No cough, no shortness of breath. Gastrointestinal: above Genitourinary: no dysuria Musculoskeletal: No back pain. Skin: No rashes. Neurological: No headache. Remainder of the 14 system rev: Yes Allergies: Coded Allergies: raw vegetable (Unverified Adverse Reaction, Unknown, 02/03/18) carrots and potatoes Home Meds Active Scripts Amoxicillin/Potassium Clav (AMOX TR-K CLV 875-125 MG TAB) 1 Each Tablet, 1 EACH PO Q12H for 10 Days, #20 TAB Prov:JOVANNI CHAMPION MD 08/20/18 Carbidopa/Levodopa (CARBIDOPA-LEVO 25-100 MG ODT) 1 Each Tab.rapdis, 1.5 TAB PO QID, #180 TAB 0 Refills Prov:EDSON GALLEGO MD 08/05/18 Atenolol (ATENOLOL) 25 Mg Tablet, 1 TAB PO QHS, #90 TAB 0 Refills Prov:EDSON GALLEGO MD 06/05/18 Reported Medications Docusate Sodium (COLACE) 100 Mg Capsule, 100 MG PO BID, CAPSULE 08/20/18 Melatonin (Melatonin) 1 Mg Tablet.er 08/14/18 Ropinirole Hcl (ROPINIROLE HCL) 2 Mg Tab.er.24h, 2 MG PO QDAY 08/14/18 Polyethylene Glycol 3350 (MIRALAX) 17 Gm Powd.pack, 17 GM PO QDAY, PKT 04/12/18 Calcium Carbonate (CALCIUM) 600 Mg Tablet, 600 MG PO DAILY 02/04/18 Rasagiline Mesylate (AZILECT) 1 Mg Tablet, 1 TAB PO QDAY 02/03/18 Discontinued Reported Medications Ropinirole Hcl (ROPINIROLE HCL) 4 Mg Tab.er.24h, 4 MG PO QDAY 04/12/18 Midodrine Hcl (MIDODRINE HCL) 5 Mg Tablet, 1 TAB PO BID 02/03/18 Discontinued Scripts Diazepam (VALIUM) 5 Mg Tablet, 5 MG PO ONCE, #1 TAB Take one hour prior to thyroid biopsy. Prov:DESON GALLEGO MD 08/14/18 Reviewed Nurses Notes: Yes Old Medical Records Reviewed: Yes Smoking Status: Never Smoker Hx Substance Use Disorder: No Hx Alcohol Use: No Constitutional Vital Sign - Last 24 Hours 08/20/18 08/20/18 08/20/18 08/20/18 06:28 07:00 07:22 07:30 Temp 98.3 Pulse 89 89 83 Resp 20 B/P (MAP) 155/90 109/73 (85) 104/63 (77) 104/64 (77) Pulse Ox 93 90 91 O2 Delivery Room Air 08/20/18 08/20/18 08/20/18 08/20/18 08:00 08:45 09:30 10:00 Pulse 81 70 B/P (MAP) 108/66 (80) 100/72 (81) 142/71 (94) 136/77 (96) Pulse Ox 92 82 08/20/18 08/20/18 08/20/18 10:30 11:00 11:30 Pulse 71 69 71 B/P (MAP) 144/79 (100) 134/76 (95) 133/78 (96) Pulse Ox 86 93 90 Intake and Output 08/20/18 08/20/18 08/21/18 15:00 23:00 07:00 Intake Total 1000 ml Balance 1000 ml Physical Exam General Appearance: The patient is alert, has no immediate need for airway protection and no signs of toxicity. [ ] Eyes: Pupils equal and round no pallor or injection. ENT, Mouth: Mucous membranes are moist. Respiratory: There are no retractions, lungs are clear to auscultation. Cardiovascular: Regular rate and rhythm. no m/r/g Gastrointestinal: abdomen is soft, bs present in all 4 quadrants. Nondistended. Able to palpate descending, sigmoid colon which = primary areas of ttp. No peritoneal sgs. No mcburney's ttp, neg dick's Rectal - no impaction, brown stool. Neurological: alert, oriented, moves all ext; lower extremity increased movement noted c/w reported parkinsons. Skin: Warm and dry, no rashes. Musculoskeletal: Extremities are nontender, nonswollen and have full range of motion. DIFFERENTIAL DIAGNOSIS: After history and physical exam differential diagnosis was considered for abdominal pain including but not limited to appendicitis, cholecystitis, gastritis, obstruction, AAA, and urinary tract infection. Medical Decision Making Data Points Result Diagram: 08/20/18 0643 08/20/18 0643 Laboratory Hematology Test 08/20/18 06:43 08/20/18 07:20 Red Blood Count 4.19 M/uL (4.17-5.56) Mean Corpuscular Volume 91.9 fL (80.0-96.0) Mean Corpuscular Hemoglobin 30.1 pg (26.0-33.0) Mean Corpuscular Hemoglobin Concent 32.7 g/dL (32.0-36.0) Red Cell Distribution Width 13.2 % (11.5-14.5) Mean Platelet Volume 8.2 fL (7.2-11.1) Neutrophils (%) (Auto) 84.3 % (39.4-72.5) Lymphocytes (%) (Auto) 8.0 % (17.6-49.6) Monocytes (%) (Auto) 6.5 % (4.1-12.4) Eosinophils (%) (Auto) 0.8 % (0.4-6.7) Basophils (%) (Auto) 0.4 % (0.3-1.4) Nucleated RBC Relative Count (auto) 0.0 /100WBC Neutrophils # (Auto) 11.3 K/uL (2.0-7.4) Lymphocytes # (Auto) 1.1 K/uL (1.3-3.6) Monocytes # (Auto) 0.9 K/uL (0.3-1.0) Eosinophils # (Auto) 0.1 K/uL (0.0-0.5) Basophils # (Auto) 0.0 K/uL (0.0-0.1) Nucleated RBC Absolute Count (auto) 0.00 K/uL Sodium Level 135 mmol/L (137-145) Potassium Level 4.1 mmol/L (3.5-5.0) Chloride Level 99 mmol/L (98-107) Carbon Dioxide Level 27 mmol/L (22-31) Blood Urea Nitrogen 19 mg/dl (7-18) Creatinine 1.00 mg/dl (0.52-1.04) Glomerular Filtration Rate Calc 54.7 Random Glucose 129 mg/dl (75-110) Calcium Level 9.9 mg/dl (8.4-10.2) Total Bilirubin 0.9 mg/dl (0.2-1.3) Aspartate Amino Transf (AST/SGOT) 23 U/L (0-35) Alanine Aminotransferase (ALT/SGPT) 8 U/L (0-56) Alkaline Phosphatase 71 U/L (0-126) Total Protein 8.0 g/dl (6.3-8.2) Albumin 4.2 g/dl (3.5-5.0) Amylase Level 72 U/L (0-110) Lipase 33 U/L (23-300) Urine Color Yellow Urine Clarity Clear Urine pH 5.0 pH (4.8-9.5) Urine Specific [place] 1.009 Urine Protein Negative mg/dL (NEGATIVE) Urine Glucose (UA) Negative mg/dL (NEGATIVE) Urine Ketones Trace mg/dL (NEGATIVE) Urine Blood Moderate (NEGATIVE) Urine Nitrite Negative (NEGATIVE) Urine Bilirubin Negative (NEGATIVE) Urine Urobilinogen Negative mg/dL (0.2-1.9) Urine Leukocyte Esterase Trace (NEGATIVE) Urine RBC 1 /HPF (0-2/HPF) Urine WBC 2 /HPF (0-5/HPF) Urine Squamous Epithelial Cells Few /LPF (</=FEW) Urine Bacteria Negative /HPF (NONE-FEW) Urine Mucus Few /HPF (NONE-FEW) Chemistry Test 08/20/18 06:43 08/20/18 07:20 White Blood Count 13.4 k/uL (4.5-11.0) Red Blood Count 4.19 M/uL (4.17-5.56) Hemoglobin 12.6 g/dL (12.0-16.0) Hematocrit 38.5 % (34.0-47.0) Mean Corpuscular Volume 91.9 fL (80.0-96.0) Mean Corpuscular Hemoglobin 30.1 pg (26.0-33.0) Mean Corpuscular Hemoglobin Concent 32.7 g/dL (32.0-36.0) Red Cell Distribution Width 13.2 % (11.5-14.5) Platelet Count 260 K/uL (150-450) Mean Platelet Volume 8.2 fL (7.2-11.1) Neutrophils (%) (Auto) 84.3 % (39.4-72.5) Lymphocytes (%) (Auto) 8.0 % (17.6-49.6) Monocytes (%) (Auto) 6.5 % (4.1-12.4) Eosinophils (%) (Auto) 0.8 % (0.4-6.7) Basophils (%) (Auto) 0.4 % (0.3-1.4) Nucleated RBC Relative Count (auto) 0.0 /100WBC Neutrophils # (Auto) 11.3 K/uL (2.0-7.4) Lymphocytes # (Auto) 1.1 K/uL (1.3-3.6) Monocytes # (Auto) 0.9 K/uL (0.3-1.0) Eosinophils # (Auto) 0.1 K/uL (0.0-0.5) Basophils # (Auto) 0.0 K/uL (0.0-0.1) Nucleated RBC Absolute Count (auto) 0.00 K/uL Glomerular Filtration Rate Calc 54.7 Calcium Level 9.9 mg/dl (8.4-10.2) Total Bilirubin 0.9 mg/dl (0.2-1.3) Aspartate Amino Transf (AST/SGOT) 23 U/L (0-35) Alanine Aminotransferase (ALT/SGPT) 8 U/L (0-56) Alkaline Phosphatase 71 U/L (0-126) Total Protein 8.0 g/dl (6.3-8.2) Albumin 4.2 g/dl (3.5-5.0) Amylase Level 72 U/L (0-110) Lipase 33 U/L (23-300) Urine Color Yellow Urine Clarity Clear Urine pH 5.0 pH (4.8-9.5) Urine Specific [place] 1.009 Urine Protein Negative mg/dL (NEGATIVE) Urine Glucose (UA) Negative mg/dL (NEGATIVE) Urine Ketones Trace mg/dL (NEGATIVE) Urine Blood Moderate (NEGATIVE) Urine Nitrite Negative (NEGATIVE) Urine Bilirubin Negative (NEGATIVE) Urine Urobilinogen Negative mg/dL (0.2-1.9) Urine Leukocyte Esterase Trace (NEGATIVE) Urine RBC 1 /HPF (0-2/HPF) Urine WBC 2 /HPF (0-5/HPF) Urine Squamous Epithelial Cells Few /LPF (</=FEW) Urine Bacteria Negative /HPF (NONE-FEW) Urine Mucus Few /HPF (NONE-FEW) Urinalysis Test 08/20/18 07:20 Urine Color Yellow Urine Clarity Clear Urine pH 5.0 pH (4.8-9.5) Urine Specific [place] 1.009 Urine Protein Negative mg/dL (NEGATIVE) Urine Glucose (UA) Negative mg/dL (NEGATIVE) Urine Ketones Trace mg/dL (NEGATIVE) Urine Blood Moderate (NEGATIVE) Urine Nitrite Negative (NEGATIVE) Urine Bilirubin Negative (NEGATIVE) Urine Urobilinogen Negative mg/dL (0.2-1.9) Urine Leukocyte Esterase Trace (NEGATIVE) Urine RBC 1 /HPF (0-2/HPF) Urine WBC 2 /HPF (0-5/HPF) Urine Squamous Epithelial Cells Few /LPF (</=FEW) Urine Bacteria Negative /HPF (NONE-FEW) Urine Mucus Few /HPF (NONE-FEW) ED Course/Re-evaluation ED Course 73 y/o female presents with abd pain, constipation. Non peritoneal abd; able to palpate tender sigmoid, descending colon. CT shows colitis that is likely stercoral after considering multiple etiologies. Specifically, I discussed with radioogist the possibilty of ischemic and this is low likelihood given vessel patency. I consulted Dr. Cannon, general surgery. After discussion with pt, who is relatively comfortable and had small, hard stool in ED, pt will f/u tomorrow with Dr. Cannon for rpt evaluation. Pt is amenable to this plan and understands SRP's. Decision to Disposition Date: Aug 20, 2018 Decision to Disposition Time: 12:40 Depart Departure Latest Vital Signs Vital Signs Date Time Temp Pulse Resp B/P (MAP) Pulse Ox O2 Delivery O2 Flow Rate FiO2 08/20/18 11:30 71 133/78 (96) 90 08/20/18 06:28 98.3 20 Room Air Impression: Primary Impression: Abdominal pain Additional Impression: Colitis Condition: Improved Disposition: HOME OR SELF-CARE Referrals: EDSON GALLEGO MD (PCP) 2 Days CLAIRE CANNON 1 Day 1pm as directed. His office will also call you to confirm New Scripts Amoxicillin/Potassium Clav (AMOX TR-K CLV 875-125 MG TAB) 1 Each Tablet 1 EACH PO Q12H for 10 Days, #20 TAB Prov: JOVANNI CHAMPION MD 08/20/18 Patient Instructions: Colitis (ED) Additional Instructions: Continue your current medications. In addition, we are starting you on Augmentin to help prevent worsening infection/inflammation. I also recommend milk of magnesia which you may purchase over the counter and take as directed today. Dr. Cannon will see you at 1pm in his office tomorrow. Please return immediately for worsening symptoms, uncontrolled pain, or any concerns. Problem Qualifiers Primary Impression: Abdominal pain Abdominal location: lower abdomen, unspecified Qualified Codes: R10.30 - Lower abdominal pain, unspecified JOVANNI CHAMPION MD Aug 20, 2018 09:05
--- NOTE | 2018-08-20 10:33 | RADIOLOGY IMAGING REPORT ---
FACILITY: [facility] [place] PATIENT NAME: Leanna Cadena : 1945 MR: [id number] V: [id number] EXAM DATE: ORDERING PHYSICIAN: JOVANNI CHAMPION TECHNOLOGIST: Location: [facility] [place] Patient: Leanna Cadena : 1945 Visit/Account:[id number] Date of Sevice: 08/20/2018 CT ABDOMEN PELVIS W/ CON HISTORY: Abdominal pain and tenderness. TECHNIQUE: CT abdomen and pelvis with intravenous contrast. One of the following dose optimization techniques was utilized in the performance of this exam: Autom ated exposure control; adjustment of the mA and/or kV according to the patient's size; or use of an i terative reconstruction technique. Specific details can be referenced in the facility's radiology C T exam operational policy. CONTRAST: 75 mL Isovue-370 IV COMPARISON: None. FINDINGS: Visualized lung bases: Unremarkable. Hepatobiliary: Low attenuating 1.6 cm lesion lateral segment left hepatic lobe consistent with cyst. Several other too small to characterize low attenuating hepatic foci, likely also cysts. Gallbladder and bile ducts grossly unremarkable. Spleen: Negative. Adrenals: Low attenuating nodularity of each adrenal gland, not significant change since at least and without more remote prior exams for comparison but most likely small bilateral adenomas. Pancreas: Negative. Kidneys/: Several low attenuating renal cortical cysts as well as other too small to characterize low attenuating cortical lesions, likely also cysts. GI: Very small sliding-type hiatal hernia. Small bowel grossly unremarkable and nondistended. Append ix well-visualized and appears normal. Mild scattered colonic constipation. Several sigmoid colonic d iverticula. Circumferential wall thickening mid to distal sigmoid colon and proximal most rectum. Vessels/spaces/nodes: Edema and trace free fluid surrounding the aforementioned thickened mid to dis юлия sigmoid and proximal most rectum but no organized fluid collection. No pneumoperitoneum. No bulky adenopathy. Mild diffuse intimal thickening but no discrete atherosclerotic plaque. Celiac, superior mesenteric and inferior mesenteric arteries widely patent. Tributaries and superior mesenteric vein grossly patent. Bones/soft tissues: Disc and facet degenerative changes lumbar spine. IMPRESSION: 1. Segmental edema mid sigmoid colon to proximal most rectum. Although this is seen in the setting of mild diverticulitis, the length of involvement is greater than typically seen with such and this is considered unlikely. More likely considerations would include stercoral or infectious colitis. 2. Other chronic and/or benign-appearing changes detailed above. Results were called to JOVANNI CHAMPION at 08/20/2018 10:29 AM. Report Dictated By: Jude Horn MD at 08/20/2018 10:18 AM Report E-Signed By: Jude Horn MD at 08/20/2018 10:29 AM WSN:[id number]
[2018-08-20 11:30] VITALS: BP 133/78
[2018-08-20] MEDS ORDERED: AMOX1TAB9 PO (12:41)
== END 2018-08-20 13:00 | disposition home or self-care (01) ==
LOC: ER 07:18
DX: R10.32 Left lower quadrant pain (principal); K52.9 Noninfective gastroenteritis and colitis, unspecified
CPT/HCPCS: 74018; 74177; 81001; 82150; 83690; 85025; 96360; 99284; J7030; Q9967; 82040; 82247; 82310; 82374; 82435; 82565; 82947; 84075; 84132; 84155; 84295; 84450; 84460; 84520

== ENCOUNTER → 2018-08-25 | Outpatient (CLI) | payer MEDICARE, BC ==
[~2018-08-25] MED LIST changes: +AMOX1TAB9 PO; +DOCU-416 PO
[2018-08-25 10:28] LABS: INR 1.01
== END ==
LOC: US 07:10
PROVIDERS: ATTEND Emergency Medicine
DX: Z01.818 Encounter for other preprocedural examination (principal); E04.1 Nontoxic single thyroid nodule
CPT/HCPCS: 36415; 85610